=== PATIENT | female | born 1990 | race Caucasian/White ===

== ENCOUNTER 2018-05-07 13:18 | Emergency (ER) | payer OTHER ==
[2018-05-07 13:41] LABS: GLUCOSE, URINE (UA) NEGATIVE (NEGATIVE); KETONES,URINE (UA) 40 mg/dL (NEGATIVE); LEUKOCYTE ESTERASE, URINE NEGATIVE (NEGATIVE); NITRITE,URINE NEGATIVE (NEGATIVE); OCCULT BLOOD,URINE LARGE (NEGATIVE); PROTEIN,URINE 30 mg/dL (NEGATIVE); UROBILINOGEN,URINE 0.2 (NORMAL) E.U./dL (NORMAL)
[2018-05-07 13:45] LABS: CLARITY,URINE SL. CLOUDY (CLEAR); HCG UR QUAL NEGATIVE
[2018-05-07 13:48] LABS: BASOPHILS % (AUTO) 0.5 %; EOSINOPHILS % (AUTO) 0.5 %; LYMPHOCYTES # (AUTO) 0.6 10^3/uL (1.5-3.5); LYMPHOCYTES % (AUTO) 20.8 %; MEAN CORPUSCULAR HGB CONC 35.3 g/dL (32.0-36.0); MEAN CORPUSCULAR VOLUME 93.5 fL (81.0-99.0); MEAN PLATELET VOLUME 7.6 fL (7.9-10.8); MONOCYTES # (AUTO) 0.4 10^3/uL (0.0-1.0); MONOCYTES % (AUTO) 12.9 %; NEUTROPHILS # (AUTO) 1.9 10^3/uL (1.5-6.6); NEUTROPHILS % (AUTO) 65.3 %; PLT - PLATELET COUNT 188 10^3/uL (130-450); RED BLOOD COUNT 3.94 10^6/uL (4.20-5.40); RED CELL DISTRIBUTION WIDTH 12.3 % (12.0-15.0); WHITE BLOOD COUNT 2.9 x10^3/uL (4.8-10.8)
[2018-05-07 13:48] LABS: BILIRUBIN,URINE NEGATIVE (NEGATIVE); ICTOTEST,URINE NEGATIVE
[2018-05-07 13:53] LABS: BACTERIA,URINE Rare /HPF (None Seen); MUCUS,URINE Moderate Strands; RBC,URINE 0-5 /HPF (0-5); SQUAMOUS EPITHELIAL CELL,UR MOD Squamous (<= Few)
--- NOTE | 2018-05-07 13:53 | ED Physician Documentation ---
PD HPI ABD PAIN - Stated complaint Stated Complaint: RT SIDE ABD PX - Chief complaint Chief Complaint: Abd Pain - History obtained from History obtained from: Patient - History of Present Illness Timing - onset: Other (She developed sudden onset right lower quadrant pain that has not been migratory and is nonradiating 4 days ago. The outset it was associated with vomiting and diarrhea. The vomiting resolved quickly but she has persistent watery green diarrhea. No fevers or chills. She has no history of abdominal surgeries. She is due for her menses soon but doubts any possibility of . Last menses was about a month ago.) Review of Systems Constitutional: denies: Fever, Chills Cardiac: denies: Chest pain / pressure, Palpitations Respiratory: denies: Dyspnea, Cough GI: reports: Abdominal Pain, Nausea, Vomiting, Diarrhea PD PAST MEDICAL HISTORY - Present Medications Home Medications: Ambulatory Orders Medication Instructions Recorded Confirmed Bcp 05/07/18 Stool 1 unit TD ONCE #1 05/07/18 - Allergies Allergies/Adverse Reactions: Allergies Allergy/AdvReac Type Severity Reaction Status Date / Time No Known Drug Allergies Allergy Verified 05/07/18 13:28 PD ED PE NORMAL - Vitals Vital signs reviewed: Yes - General General: Alert and oriented X 3, No acute distress - HEENT HEENT: PERRL, EOMI - Neck Neck: Supple, no meningeal sign, No bony TTP - Cardiac Cardiac: RRR, No murmur - Respiratory Respiratory: No respiratory distress, Clear bilaterally - Abdomen Abdomen: Other (Soft, focal TTP RLQ at McBurney's. Neg Rovsing. No rebound) - Back Back: No CVA TTP, No spinal TTP - Derm Derm: Normal color, Warm and dry - Extremities Extremities: No edema, No calf tenderness / cord - Neuro Neuro: Alert and oriented X 3, Normal speech Results - Vitals Vitals: Vital Signs - 24 hr 05/07/18 05/07/18 13:24 15:40 Temperature 36.8 C Heart Rate 111 H 86 Respiratory 18 16 Rate Blood Pressure 149/98 H 128/72 O2 Saturation 100 98 Oxygen O2 Source Room air - Labs Labs: Laboratory Tests 05/07/18 05/07/18 05/07/18 13:30 13:44 13:44 WBC 2.9 L RBC 3.94 L Hgb 13.0 Hct 36.8 L MCV 93.5 MCH 33.0 H MCHC 35.3 RDW 12.3 Plt Count 188 MPV 7.6 L Neut # (Auto) 1.9 Lymph # (Auto) 0.6 L [place] # (Auto) 0.4 Eos # (Auto) 0.0 Baso # (Auto) 0.0 Absolute Nucleated RBC 0.00 Nucleated RBC % 0.1 Manual Slide Review Indicated Platelet Estimate NORMAL (130-450,000) Platelet Morphology NORMAL APPEARANCE RBC Morph Micro Appear NORMAL APPEARANCE Sodium 135 Potassium 3.8 Chloride 99 L Carbon Dioxide 26 Anion Gap 10.0 BUN 9 Creatinine 0.7 Estimated GFR (MDRD) 100 Glucose 90 Calcium 8.8 Total Bilirubin 0.6 AST 22 ALT 17 Alkaline Phosphatase 40 L Total Protein 7.4 Albumin 3.8 Globulin 3.6 Albumin/Globulin Ratio 1.1 Lipase 28 Urine Color YELLOW Urine Clarity SL. CLOUDY Urine pH 6.0 Ur Specific [place] 1.025 Urine Protein 30 H Urine Glucose (UA) NEGATIVE Urine Ketones 40 H Urine Occult Blood LARGE H Urine Nitrite NEGATIVE Urine Bilirubin NEGATIVE Urine Urobilinogen 0.2 (NORMAL) Ur Leukocyte Esterase NEGATIVE Urine RBC 0-5 Urine WBC 0-3 Ur Squamous Epith Cells MOD Squamous H Urine Bacteria Rare Urine Mucus Moderate Strands Ur Microscopic Review INDICATED Urine Culture Comments NOT INDICATED Urine HCG, Qual NEGATIVE - Rads (name of study) CT A/P Radiology: EMP read contemporaneously (Small pelvic free fluid and colonic and distal ileal thickening consistent with enterocolitis.) PD MEDICAL DECISION MAKING - ED course ED course: 28-year-old woman with acute diarrhea, some vomiting and abdominal pain. It is in the right lower quadrant so appendicitis was entertained with the workup shows no evidence of this. At this point it looks mostly like a viral gastroenteritis. Conservative care but follow-up for persistent symptoms was advised. She was unable to produce a stool sample here and was given materials for stool collection and an outpatient requisition. - Sepsis Event Vital Signs: Vital Signs - 24 hr 05/07/18 05/07/18 13:24 15:40 Temperature 36.8 C Heart Rate 111 H 86 Respiratory 18 16 Rate Blood Pressure 149/98 H 128/72 O2 Saturation 100 98 Oxygen O2 Source Room air Departure - Departure Disposition: 01 Home, Self Care Clinical Impression: Abdominal pain, Gastroenteritis, Diarrhea Condition: Good Record reviewed to determine appropriate education?: Yes Instructions: ED Gastroenteritis Viral Prescriptions: Stool 1 unit TD ONCE #1 Comments: You can take Imodium as needed for symptoms if they are severe. If symptoms are persistent follow-up with your doctor for further evaluation and treatment. Return for new or worsening symptoms. We will call if any of the stool studies are positive. Your blood pressure was elevated today on check into the emergency department. This does not mean that you have hypertension, it is a common phenomenon to come to the emergency department and have elevated blood pressure. I recommend that you see your primary care physician within the week to have it rechecked when you are feeling better. Discharge Date/Time: 05/07/18 15:55
[2018-05-07 14:00] LABS: ALBUMIN 3.8 g/dL (3.2-5.5); ALBUMIN/GLOBULIN RATIO 1.1 (1.0-2.2); BILIRUBIN,TOTAL 0.6 mg/dL (0.2-1.0); CALCIUM 8.8 mg/dL (8.5-10.3); CREATININE 0.7 mg/dL (0.4-1.0); TOTAL PROTEIN 7.4 g/dL (6.7-8.2)
[2018-05-07] MEDS ORDERED: IOPAMIDOL-300 100 ML VIAL ONE (14:23)
[2018-05-07 14:33] LABS: PLATELET ESTIMATE, MANUAL NORMAL (130-450,000) (NORMAL); PLATELET MORPHOLOGY NORMAL APPEARANCE (NORMAL)
[2018-05-07] MEDS ORDERED: IOPAMIDOL-300 100 ML VIAL IVP ONE (14:33)
[2018-05-07 14:34] LABS: RBC MORPHOLOGY (MULTIPLE) NORMAL APPEARANCE (NORMAL)
--- NOTE | 2018-05-07 15:09 | CT Report ---
Reason: IV only, Rlq pain Procedure Date: 05/07/2018 Accession Number: [id number] / [id number] Procedure: CT - Abdomen/Pelvis W/ CPT Code: FULL RESULT: EXAM: CT ABDOMEN AND PELVIS EXAM DATE: 05/07/2018 02:34 PM. CLINICAL HISTORY: Right lower quadrant abdominal pain. COMPARISONS: None. TECHNIQUE: Routine helical CT imaging was performed through the abdomen and pelvis. IV contrast: 100 cc Isovue-300. Enteric contrast: No. Reconstructions: Coronal and sagittal. In accordance with CT protocol optimization, one or more of the following dose reduction techniques were utilized for this exam: automated exposure control, adjustment of mA and/or KV based on patient size, or use of iterative reconstructive technique. FINDINGS: Lung Bases: Unremarkable. Liver: Normal. No masses. Gallbladder/Bile Ducts: Unremarkable. Spleen: Normal. Pancreas: Normal. Adrenal Glands: Normal. Kidneys: Normal. No masses or hydronephrosis. Peritoneal Cavity/Bowel: Nonspecific small volume free pelvic fluid may be physiologic. There is apparent mild diffuse colonic wall thickening most pronounced at the descending and proximal sigmoid colon, suggesting nonspecific colitis. There additionally appears to be some wall thickening involving the distal ileum. No pneumatosis. No organized fluid collection. Partially visualized appendix appears normal caliber to the extent visualized. Pelvic Organs: Normal. The bladder and visualized pelvic organs are within normal limits. Vasculature: No aneurysms or other significant abnormality. Celiac, SMA, SHANI, mesenteric veins, SMV, portal vein, hepatic veins are patent. No portal venous gas. Bones: No significant abnormality. Other: None. IMPRESSION: 1. Mild diffuse colonic and distal ileal wall thickening, suggesting nonspecific enterocolitis. Consider infectious, inflammatory etiologies. 2. Nonspecific small volume free pelvic fluid, possibly physiologic. 3. Other findings as noted above. RADIA
[2018-05-07 15:53] VITALS: BP 128/72
--- NOTE | 2018-05-10 11:53 | ED Physician Documentation ---
ED Addendum - Addendum Addendum: 05/10/18 11:52 I noted that the stool cx and O/P were not run and cancelled by lab personnel I contacted the lab mgr who told me that they were not in the correct tubes, which I believe we gave the patient. I called the number on the chart to tell the patient, no answer and the VM was full so she could not be contacted.
== END 2018-05-07 15:55 | disposition home or self-care (01) ==
LOC: ED 13:18
DX: K52.9 Noninfective gastroenteritis and colitis, unspecified (principal); R10.31 Right lower quadrant pain; R19.7 Diarrhea, unspecified; I10 Essential (primary) hypertension
CPT/HCPCS: 36415; 74177; 80053; 81001; 81025; 83690; 85025; 99283; Q9967; 81003; 87086

== ENCOUNTER 2018-05-08 08:00 | Outpatient (CLI) | payer OTHER | END 2018-05-08 08:01 | disposition home or self-care (01) | LOC: LAB.R 08:00 | PROVIDERS: ATTEND Emergency Medicine | DX: R19.7 Diarrhea, unspecified (principal) | CPT/HCPCS: 87045; 87046; 87177; 87209; 87493 ==